=== PATIENT | male | born 1960 | race Two or more races ===

== ENCOUNTER 2019-01-28 08:40 | Emergency (ER) | payer BC ==
--- NOTE | 2019-01-28 09:15 | ER Document Report ---
ED Medical Screen (RME) - General Chief Complaint: Chest Pain Stated Complaint: CHEST PAIN Time Seen by Provider: 01/28/19 09:03 Primary Care Provider: EZIO PEACOCK PA [Primary Care Provider] - Follow up as needed Mode of Arrival: Ambulatory Information source: Patient Notes: Patient presents emergency department with right-sided chest pain that has been happening since Monday. Reports it goes down his right arm and to his neck. Reports the pain feels positional when he moves his neck. Denies fever vomiting nausea. Denies diaphoresis. Reports no cardiac history, denies family history of cardiac disease. Reports Monday he was holding a big piece of cardboard and thinks he may have strained something at that time. Also reports that his chest hurts more when he lays on the left side. No complaints of shortness of breath. pt took 2 aspirin before coming to the ED. I have greeted and performed a rapid initial assessment of this patient. A comprehensive ED assessment and evaluation of the patient, analysis of test results and completion of the medical decision making process will be conducted by additional ED providers. TRAVEL OUTSIDE OF THE [place] IN LAST 30 DAYS: No - Related Data Allergies/Adverse Reactions: No Known Allergies Allergy (Unverified 01/28/19 08:43) Physical Exam - Vital signs Vitals: Temp Pulse Resp BP 98.3 F 84 18 165/89 H 01/28/19 08:57 01/28/19 08:57 01/28/19 08:57 01/28/19 08:57 Course - Vital Signs Vital signs: Temp Pulse Resp BP Pulse Ox 98.3 F 84 18 165/89 H 01/28/19 08:57 01/28/19 08:57 01/28/19 08:57 01/28/19 08:57 Doctor's Discharge - Discharge Referrals: EZIO PEACOCK PA [Primary Care Provider] - Follow up as needed
--- NOTE | 2019-01-28 10:09 | RADIOLOGY REPORT (SQ) ---
EXAM DESCRIPTION: CHEST 2 VIEWS COMPLETED DATE/TIME: 01/28/2019 9:35 am REASON FOR STUDY: right side chest pain COMPARISON: None. EXAM PARAMETERS: NUMBER OF VIEWS: two views TECHNIQUE: Digital Frontal and Lateral radiographic views of the chest acquired. RADIATION DOSE: NA LIMITATIONS: none FINDINGS: LUNGS AND PLEURA: No opacities, masses or pneumothorax. No pleural effusion. MEDIASTINUM AND HILAR STRUCTURES: No masses or contour abnormalities. HEART AND VASCULAR STRUCTURES: Heart normal size. No evidence for failure. BONES: No acute findings. HARDWARE: None in the chest. OTHER: No other significant finding. IMPRESSION: NO ACUTE RADIOGRAPHIC FINDING IN THE CHEST. TECHNICAL DOCUMENTATION: JOB ID: [id number] [employer]- All Rights Reserved Reading location - IP/workstation name: [email or web address]
[2019-01-28 10:52] LABS: ABSOLUTE BASOPHILS # (AUTO) 0.1 10^3/uL (0.0-0.2); ABSOLUTE EOSINOPHILS # (AUTO) 0.3 10^3/uL (0.0-0.6); ABSOLUTE LYMPHOCYTES (AUTO) 1.1 10^3/uL (0.5-4.7); ABSOLUTE MONOCYTES (AUTO) 0.4 10^3/uL (0.1-1.4); ABSOLUTE NEUT (AUTO) 4.5 10^3/uL (1.7-8.2); BASOPHILS % (AUTO) 0.8 % (0-2); EOSINOPHILS % (AUTO) 4.3 % (0-6); HEMATOCRIT 49.3 % (37.9-51.0); HEMOGLOBIN 17.3 g/dL (13.5-17.0); MEAN CORPUSCULAR HEMOGLOBIN 31.6 pg (27.0-33.4); MEAN CORPUSCULAR HGB CONC 35.1 g/dL (32.0-36.0); MEAN CORPUSCULAR VOLUME 90 fl (80-97); MONOCYTES % (AUTO) 6.5 % (3-13); PLATELET COUNT 202 10^3/uL (150-450); RED BLOOD COUNT 5.47 10^6/uL (4.35-5.55); RED CELL DISTRIBUTION WIDTH 13.3 % (11.5-14.0); SEGMENTED NEUTROPHILS % (AUTO) 70.4 % (42-78); TOTAL CELLS COUNTED % (AUTO) 100 %; WHITE BLOOD COUNT 6.3 10^3/uL (4.0-10.5)
[2019-01-28 10:53] LABS: ALBUMIN 4.7 g/dL (3.5-5.0); ALKALINE PHOSPHATASE 87 U/L (38-126); ANION GAP 10 (5-19); ASPARTATE AMINO TRANSFERASE 32 U/L (17-59); BLOOD UREA NITROGEN 19 mg/dL (7-20); CALCIUM 9.8 mg/dL (8.4-10.2); CARBON DIOXIDE 28 mmol/L (22-30); CHLORIDE 102 mmol/L (98-107); GLUCOSE 93 mg/dL (75-110); POTASSIUM 4.6 mmol/L (3.6-5.0); SODIUM 139.9 mmol/L (137-145)
[2019-01-28 10:54] LABS: ALANINE AMINOTRANSFERASE 51 U/L (21-72); BILIRUBIN,DIRECT 0.2 mg/dL (0.0-0.4); BILIRUBIN,TOTAL 0.6 mg/dL (0.2-1.3); CREATINE KINASE 64 U/L (55-170); TOTAL PROTEIN 7.3 g/dL (6.3-8.2)
[2019-01-28 11:05] LABS: CREATINE KINASE MB 0.33 ng/mL (<4.55)
[2019-01-28 11:06] LABS: TROPONIN I < 0.012 ng/mL
--- NOTE | 2019-01-28 13:36 | ER Document Report ---
ED General - General Chief Complaint: Chest Pain Stated Complaint: CHEST PAIN Time Seen by Provider: 01/28/19 09:03 Primary Care Provider: EZIO PEACOCK PA [PHYSICIAN MORTGAGE CLERK] - Follow up in 3-5 days Mode of Arrival: Ambulatory Information source: [facility] Records Notes: 59-year-old male with hypertension presents with complaint of right-sided chest pain that started 3 days prior to arrival. 4 days prior to arrival patient reports that he was carrying a piece of wood over his head when he lost balance causing him to twist his upper body and neck. He states the pain started the next day. He describes it as a an intermittent pinching pain that radiates down his arm. He reports that the pain improves with movement of his arm and neck. Patient denies any upper extremity weakness, current chest pain, associated shortness of breath, diaphoresis, nausea, vomiting. Patient has taken Tylenol without relief. Patient reports a stress test done approximately 10 years ago. He denies tobacco use, drug use and occasionally drinks. TRAVEL OUTSIDE OF THE [place] IN LAST 30 DAYS: No - HPI Onset: Other Onset/Duration: Intermittent, Gone Quality of pain: Other - Pinching Severity: None Pain Level: Denies Associated symptoms: Chest pain. denies: Productive cough, Hurts to breath, Leg swelling, Nausea, Vomiting, Shortness of breath, Sweating Exacerbated by: Denies Relieved by: Other - Movement of his arm and neck. Similar symptoms previously: No Recently seen / treated by doctor: No - Related Data Allergies/Adverse Reactions: No Known Allergies Allergy (Unverified 01/28/19 08:43) Past Medical History - General Information source: Patient - Social History Smoking Status: Never Smoker Frequency of alcohol use: Occasional Drug Abuse: None Lives with: Spouse/Significant other Family History: Reviewed & Not Pertinent Patient has suicidal ideation: No Patient has homicidal ideation: No - Past Medical History Cardiac Medical History: Reports: Hx Hypertension Review of Systems - Review of Systems Notes: REVIEW OF SYSTEMS: CONSTITUTIONAL : Denies fever, chills, or sweats. Denies recent illness. Denies weight loss, recent hospitalizations. EENT: Denies visual changes, eye pain. Denies sore throat, oral lesions, difficulty swallowing. CARDIOVASCULAR: Denies chest pain. Denies palpitations. Denies lower extremity edema. RESPIRATORY: Denies cough. Denies shortness of breath, wheezing. GASTROINTESTINAL: Denies abdominal pain or distention. Denies nausea, vomiting, or diarrhea. Denies blood in vomitus, stools, or per rectum. Denies black, tarry stools. Denies constipation. GENITOURINARY: Denies difficulty urinating, painful urination, frequency, blood in urine, testicular pain or penile discharge. MUSCULOSKELETAL: Denies back or neck pain or stiffness. Denies joint pain or swelling. SKIN: Denies rash, lesions or sores. HEMATOLOGIC : Denies easy bruising or bleeding. LYMPHATIC: Denies swollen glands. NEUROLOGICAL: Denies confusion or altered mental status. Denies loss of consciousness. Denies dizziness or lightheadedness. Denies headache. Denies weakness or paralysis. Denies problems difficulty with ambulation, slurred speech. Denies sensory loss, numbness, or tingling. Denies seizures. PSYCHIATRIC: Denies anxiety or stress. Denies depression, suicidal ideation, or Physical Exam - Vital signs Vitals: Temp Pulse Resp BP 98.3 F 84 18 165/89 H 01/28/19 08:57 01/28/19 08:57 01/28/19 08:57 01/28/19 08:57 - Notes Notes: PHYSICAL EXAMINATION: GENERAL: Well-appearing, well-nourished and in no acute distress. HEAD: Atraumatic, normocephalic. EYES: Pupils equal round and reactive to light, extraocular movements intact, sclera anicteric, conjunctiva are normal. ENT: Nares patent, oropharynx clear without exudates. Moist mucous membranes. NECK: Normal range of motion, supple without lymphadenopathy LUNGS: Breath sounds clear to auscultation bilaterally and equal. No wheezes rales or rhonchi. HEART: Regular rate and rhythm without murmurs ABDOMEN: Soft, nontender, nondistended abdomen. No guarding, no rebound. No masses appreciated. Musculoskeletal: Normal range of motion, no pitting or edema. No cyanosis. NEUROLOGICAL: Cranial nerves grossly intact. Normal speech, normal gait. Normal sensory, motor exams PSYCH: Normal mood, normal affect. SKIN: Warm, Dry, normal turgor, no rashes or lesions noted. Course - Re-evaluation Re-evalutation: Laboratory 01/28/19 01/28/19 01/28/19 10:25 10:25 10:25 WBC 6.3 RBC 5.47 Hgb 17.3 H Hct 49.3 MCV 90 MCH 31.6 MCHC 35.1 RDW 13.3 Plt Count 202 Seg Neutrophils % 70.4 Lymphocytes % 18.0 Monocytes % 6.5 Eosinophils % 4.3 Basophils % 0.8 Absolute Neutrophils 4.5 Absolute Lymphocytes 1.1 Absolute Monocytes 0.4 Absolute Eosinophils 0.3 Absolute Basophils 0.1 Sodium 139.9 Potassium 4.6 Chloride 102 Carbon Dioxide 28 Anion Gap 10 BUN 19 Creatinine 1.00 Est GFR ( Amer) > 60 Est GFR (Non-Af Amer) > 60 Glucose 93 Calcium 9.8 Total Bilirubin 0.6 Direct Bilirubin 0.2 Neonat Total Bilirubin Not Reportable Neonat Direct Bilirubin Not Reportable Neonat Indirect Bili Not Reportable AST 32 ALT 51 Alkaline Phosphatase 87 Creatine Kinase 64 CK-MB (CK-2) 0.33 Troponin I < 0.012 Total Protein 7.3 Albumin 4.7 01/28/19 13:32 WBC RBC Hgb Hct MCV MCH MCHC RDW Plt Count Seg Neutrophils % Lymphocytes % Monocytes % Eosinophils % Basophils % Absolute Neutrophils Absolute Lymphocytes Absolute Monocytes Absolute Eosinophils Absolute Basophils Sodium Potassium Chloride Carbon Dioxide Anion Gap BUN Creatinine Est GFR ( Amer) Est GFR (Non-Af Amer) Glucose Calcium Total Bilirubin Direct Bilirubin Neonat Total Bilirubin Neonat Direct Bilirubin Neonat Indirect Bili AST ALT Alkaline Phosphatase Creatine Kinase CK-MB (CK-2) Troponin I < 0.012 Total Protein Albumin Chest X-Ray 01/28/19 09:11 IMPRESSION: NO ACUTE RADIOGRAPHIC FINDING IN THE CHEST. Temp Pulse Resp BP Pulse Ox 98.0 F 65 13 152/84 H 95 01/28/19 15:00 01/28/19 15:00 01/28/19 15:01 01/28/19 15:01 01/28/19 15:01 59-year-old male with hypertension presents with complaint of right-sided chest pain that started 3 days prior to arrival. 4 days prior to arrival patient reports that he was carrying a piece of wood over his head when he lost balance causing him to twist his upper body and neck. He states the pain started the next day. He describes it as a an intermittent pinching pain that radiates down his arm. He reports that the pain improves with movement of his arm and neck. Patient denies any upper extremity weakness, current chest pain, associated shortness of breath, diaphoresis, nausea, vomiting. Vital signs patient has mild hypertension. EKG shows normal sinus rhythm. CBC, CMP, cardiac enzymes including delta troponin are within normal limits. 01/29/19 00:22 HEART Score: History-0 ECG-0 Age-1 Risk Factors-1 Troponin Total: 2 If HEART score is = 3 AND both troponin measurements are normal, the 30 day risk of a major adverse cardiac event (all-cause mortality, myocardial infarct ion or need for coronary revascularization) is < 1% (Sensitivity 100%, NPV 100%). Chest pain in a patient without evidence of cardiac or other serious etiology on workup today. I discussed with patient that, based on their age, risk factors and emergency department testing today, the likelihood that their symptoms are related to a heart attack is very low (estimated risk of heart attack or over the next 30 days of less than 1%). The patient demonstrates decision making capacity and has verbalized an understanding of these risks to me. Based on this, the patient has chosen to follow-up as an outpatient. Usual chest pain return precautions reviewed. The patient states understanding and agreement with this plan. 01/29/19 00:23 - Vital Signs Vital signs: Temp Pulse Resp BP Pulse Ox 98.0 F 65 13 152/84 H 95 01/28/19 15:00 01/28/19 15:00 01/28/19 15:01 01/28/19 15:01 01/28/19 15:01 - Laboratory Result Diagrams: 01/28/19 10:25 01/28/19 10:25 Laboratory results interpreted by me: 01/28/19 10:25 Hgb 17.3 H - Diagnostic Test Radiology reviewed: Image reviewed, Reports reviewed - EKG Interpretation by Me EKG shows normal: Sinus rhythm Rate: Normal Rhythm: NSR When compared to previous EKG there are: Previous EKG unavailable, Other - Repeat EKG shows the patient to be in normal sinus rhythm with a rate of 70. Patient does have T wave inversion in lead III. Unchanged from previous. Discharge - Discharge Clinical Impression: Chest wall pain Chest pain Qualifiers: Chest pain type: unspecified Qualified Code(s): R07.9 - Chest pain, unspecified Hypertension Qualifiers: Hypertension type: unspecified Qualified Code(s): I10 - Essential (primary) hypertension Condition: Good Disposition: HOME, SELF-CARE Instructions: Chest Wall Pain ([facility]), Chest Pain of Unclear Cause ([facility]) Additional Instructions: You were seen today for chest pain. The exact cause of your pain is unclear. However, based on your cardiac enzyme testing, chest x-ray, and EKG it does not appear that it is from an immediately life-threatening cause at this time. Although your testing here is normal is critical that you follow-up with your primary care physician for continued evaluation of this chest pain and possible stress testing. I recommended you see your physician within the next 24-48 hours to be evaluated for consideration of a stress test. [facility] if you have worsening of your chest pain, shortness of breath, vomiting, become unable to exert yourself due to pain or difficulty breathing, you pass out, or have any pain that radiates into your arms, jaw, or back. Please also return if you have any additional symptoms that are concerning to you. Forms: Elevated Blood Pressure Referrals: EZIO PEACOCK PA [PHYSICIAN MORTGAGE CLERK] - Follow up in 3-5 days
[2019-01-28 15:07] VITALS: BP 152/84
--- NOTE | 2019-01-29 00:12 | EKG REPORT ---
SEVERITY:- BORDERLINE ECG - SINUS RHYTHM BORDERLINE T ABNORMALITIES, INFERIOR LEADS : Confirmed by: Carlos Alberto Kelly 29-Jan-2019 00:11:41
--- NOTE | 2019-01-29 00:12 | EKG REPORT ---
SEVERITY:- BORDERLINE ECG - SINUS RHYTHM BORDERLINE T ABNORMALITIES, INFERIOR LEADS : Confirmed by: Carlos Alberto Kelly 29-Jan-2019 00:11:32
== END 2019-01-28 15:05 | disposition home or self-care (01) ==
LOC: ER 08:40
DX: R07.89 Other chest pain (principal); X50.1XXA Overexertion from prolonged static or awkward postures, initial encounter; Y93.89 Activity, other specified; I10 Essential (primary) hypertension
CPT/HCPCS: 36415; 71046; 80053; 82550; 82553; 84484; 85025; 93005; 93010; 99285